=== PATIENT | male | born 1950 | race Caucasian/White ===

== ENCOUNTER 2025-08-02 15:43 | Outpatient (CLI) | payer MEDICARE, BC, SELFPAY ==
[2025-08-02 18:02] LABS: PSA Diagnostic* 0.37 ng/mL (0.10-4.00)
== END 2025-08-02 15:44 | disposition home or self-care (01) ==
PROVIDERS: PCP Nurse Practitioner; Visit Provider Nurse Practitioner
DX: C61 Malignant neoplasm of prostate (principal)
CPT/HCPCS: 36415; 72195; 84153; 84403